=== PATIENT | female | born 2000 | race American Indian/Alaskan Native ===

== ENCOUNTER 2021-09-08 16:35 | Emergency (ER) | payer MEDICAID ==
[2021-09-08 16:58] VITALS: BP 140/77
[2021-09-08] MEDS ORDERED: DEXAMETHASONE 4 MG TAB PO ONE (18:58)
[2021-09-08] MEDS ORDERED: KETOROLAC 10 MG TAB PO ONE (18:58)
--- NOTE | 2021-09-08 19:00 | Emergency Department Report ---
ED ENT HPI - General Chief complaint: Headache Stated complaint: HEAD PAIN Time Seen by Provider: 09/08/21 18:46 Source: patient Mode of arrival: Ambulatory Limitations: No Limitations - History of Present Illness Initial comments: 21 yof with no pmh presents to ed for evaluation of 3 day history of headache and facial pain and pressure. She states that pain is 8-9/10 and she has not taken anything for it. She denies fever, n/v/d, and dysuria but states that she has had a non productive cough. MD complaint: other (headache and facial pain) -: Gradual, days(s) (3) Location: R ear Severity: moderate, severe Severity scale (0 -10): 8 Quality: aching Consistency: constant - Related Data Previous Rx's Medication Instructions Recorded Last Taken Type Cetirizine HCl [ZyrTEC 10mg cap] 10 mg PO DAILY #30 cap 09/08/21 Unknown Rx methylPREDNISolone [Medrol 4MG 4 mg PO DAILY #1 pack 09/08/21 Unknown Rx DOSEPAK (21 tabs)] Allergies Allergy/AdvReac Type Severity Reaction Status Date / Time No Known Allergies Allergy Unverified 09/08/21 16:56 ED Dental HPI - General Chief complaint: Headache Stated complaint: HEAD PAIN Time Seen by Provider: 09/08/21 18:46 Source: patient Mode of arrival: Ambulatory Limitations: No Limitations - Related Data Previous Rx's Medication Instructions Recorded Last Taken Type Cetirizine HCl [ZyrTEC 10mg cap] 10 mg PO DAILY #30 cap 09/08/21 Unknown Rx methylPREDNISolone [Medrol 4MG 4 mg PO DAILY #1 pack 09/08/21 Unknown Rx DOSEPAK (21 tabs)] Allergies Allergy/AdvReac Type Severity Reaction Status Date / Time No Known Allergies Allergy Unverified 09/08/21 16:56 ED Review of Systems ROS: Stated complaint: HEAD PAIN Other details as noted in HPI Comment: All other systems reviewed and negative Constitutional: denies: chills, diaphoresis, fever, malaise, weakness Eyes: denies: eye pain, eye discharge, vision change ENT: ear pain, congestion. denies: throat pain, dental pain, hearing loss, epistaxis Respiratory: cough. denies: orthopnea, shortness of breath, SOB with exertion, SOB at rest, stridor, wheezing Cardiovascular: denies: chest pain, palpitations, dyspnea on exertion, orthopnea Endocrine: no symptoms reported Gastrointestinal: denies: abdominal pain, nausea, vomiting, diarrhea, hematemesis, melena, hematochezia Genitourinary: denies: urgency, dysuria, frequency, hematuria Musculoskeletal: denies: back pain Neurological: headache. denies: weakness, numbness, paresthesias Psychiatric: denies: anxiety, depression Hematological/Lymphatic: denies: easy bleeding, easy bruising ED Past Medical Hx - Medications Home Medications: Home Medications Medication Instructions Recorded Confirmed Last Taken Type Cetirizine HCl [ZyrTEC 10mg cap] 10 mg PO DAILY #30 cap 09/08/21 Unknown Rx methylPREDNISolone [Medrol 4MG 4 mg PO DAILY #1 pack 09/08/21 Unknown Rx DOSEPAK (21 tabs)] ED Physical Exam - General Limitations: No Limitations General appearance: alert, in no apparent distress - Head Head exam: Present: atraumatic, normocephalic, other (tenderness to bilateral maxillary and frontal sinus areas) - Eye Eye exam: Present: normal appearance. Absent: conjunctival injection - ENT ENT exam: Present: mucous membranes moist, normal external ear exam. Absent: normal exam (bilateral nasal mucosal edema. ), normal orophraynx (erythema noted to posterior orophraynx) - Expanded ENT Exam Expanded Ear exam: Present: normal external inspection Mouth exam: Present: normal external inspection Throat exam: Negative: tonsillar erythema, tonsillomegaly, tonsillar exudate, R peritonsillar mass, L peritonsillar mass - Neck Neck exam: Present: normal inspection. Absent: tenderness, lymphadenopathy - Respiratory Respiratory exam: Present: normal lung sounds bilaterally. Absent: respiratory distress, wheezes, rales, rhonchi, stridor, chest wall tenderness, accessory muscle use - Cardiovascular Cardiovascular Exam: Present: regular rate, normal heart sounds - GI/Abdominal GI/Abdominal exam: Present: soft, normal bowel sounds. Absent: distended, tenderness, guarding, rebound, rigid - Extremities Exam Extremities exam: Present: normal inspection - Back Exam Back exam: Present: normal inspection. Absent: CVA tenderness (R), CVA t enderness (L) - Neurological Exam Neurological exam: Present: alert, oriented X3 - Psychiatric Psychiatric exam: Present: normal affect, normal mood - Skin Skin exam: Present: warm, dry, intact, normal color ED Course Vital Signs 09/08/21 09/08/21 16:56 20:11 Temperature 98.6 F Pulse Rate 69 Respiratory 16 16 Rate Blood Pressure 140/77 [Right] O2 Sat by Pulse 100 Oximetry ED Medical Decision Making - Medical Decision Making 21 yof with no pmh presents to ed for evaluation of 3 day history of headache and facial pain and pressure. She states that pain is 8-9/10 and she has not taken anything for it. She denies fever, n/v/d, and dysuria but states that she has had a non productive cough. Exam consistent with sinusitis, and patient has not taken any otc medications for it, so she will be treated with 6 day steroid pack and started on daily sinus medication. Plan of care discuss with patient, and she verbalized understanding of and agreement with. Critical care attestation.: If time is entered above; I have spent that time in minutes in the direct care of this critically ill patient, excluding procedure time. ED Disposition Clinical Impression: Sinusitis Qualifiers: Sinusitis location: frontal Chronicity: acute Recurrence: non-recurrent Qualified Code(s): J01.10 - Acute frontal sinusitis, unspecified Disposition: HOME / SELF CARE / HOMELESS Is pt being admited?: No Does the pt Need Aspirin: No Condition: Stable Instructions: Sinusitis, Adult, [id number], How to Perform a Sinus Rinse, [id number], Sinus Headache, [id number] Additional Instructions: Take medication as prescribed. Follow-up with primary care provider if no improvement or worsening symptoms. Prescriptions: methylPREDNISolone [Medrol 4MG DOSEPAK (21 tabs)] 4 mg PO DAILY #1 pack Cetirizine HCl [ZyrTEC 10mg cap] 10 mg PO DAILY #30 cap Referrals: NICOLE CHAPIN MD [Referring] - 3-5 Days Time of Disposition: 19:00
== END 2021-09-08 20:35 | disposition home or self-care (01) ==
LOC: ED 16:35
DX: J32.9 Chronic sinusitis, unspecified (principal)
CPT/HCPCS: 99282; J8540

== ENCOUNTER 2021-09-26 16:00 | Emergency (ER) | payer MEDICAID ==
[2021-09-26 16:58] VITALS: BP 156/86
--- NOTE | 2021-09-28 08:51 | Electrocardiograph Report ---
[facility] Test Date: 2021-09-26 Test Time: 17:16:02 Pat Name: RADHA COYLE Department: Room: Gender: F [employer] Examiner: TRESA : 2000 Requested By: ED DOC Order Number: [id number] Reading MD: Colby Kaur Measurements Intervals [place] Rate: 72 P: 19 WI: 164 QRS: 14 QRSD: 86 T: 14 QT: 383 QTc: 419 Interpretive Statements Sinus rhythm No previous ECG available for comparison [id number] Electronically Signed On 09-28-2021 8:51:19 EDT by Colby Kaur
== END 2021-09-26 17:30 | disposition left against medical advice (07) ==
LOC: ED 16:00
DX: R07.89 Other chest pain (principal); Z53.21 Procedure and treatment not carried out due to patient leaving prior to being seen by health care provider
CPT/HCPCS: 93005